=== PATIENT | female | born 1950 | race Caucasian/White ===

== ENCOUNTER 2018-04-04 10:32 | Day surgery (SDC) | payer OTHER, SELFPAY ==
[~2018-04-04] VITALS: Ht 160 cm; Wt 88.9 kg
[~2018-04-04 10:32] MED LIST: CALCAVITDA PO; ESTR2 PO; GLUCHON PO; HYDCHL25 PO; LISI5 PO; MEDR5 PO; MULTIVITAMIN; POTCHL10ER PO; VITAMIN D; [UNRECOGNIZED DRUG - REMARK]
== END 2018-04-04 22:45 | disposition home or self-care (01) ==
LOC: ORSCMMR 10:32 → ORD 11:30 → ORSCMMR 22:45
PROVIDERS: Internal Medicine Gastroenterology
PROC: 0DBE8ZX Excision of Large Intestine, Via Natural or Artificial Opening Endoscopic, Diagnostic (ICD-10-PCS; principal; 2018-04-04 11:30)
DX: R19.7 Diarrhea, unspecified (principal); I10 Essential (primary) hypertension; Z79.899 Other long term (current) drug therapy
CPT/HCPCS: J7120

== ENCOUNTER 2023-09-11 08:48 | Day surgery (SDC) | payer OTHER ==
[~2023-09-11] VITALS: Ht 160 cm; Wt 85.1 kg
[~2023-09-11 08:48] MED LIST changes: +Balanced Salt Epinephrine Irrigation Solution 500 mL IR SCH; +Lidocaine HCl/Pf 1% 5 ML VIAL XX SCH; +Moxifloxacin HCL 0.5 MG/0.1 ML 0.4MLSYR LEFTEYE SCH; +NS 500 ML IV ONE; +PHENYLEPHRINE\\TROPICAMIDE\\TETRACAINE OPHTHALMIC DILATING SOLN LEFTEYE PRN; +Povidone-Iodine 450 DROP/30 ML Solution LEFTEYE SCH; +Povidone-Iodine 450 DROP/30 ML Solution ONE
[2023-09-11] MEDS ORDERED: NS 500 ML IV ONE (09:21)
--- NOTE | 2023-09-11 09:21 | NUR ---
09/11/23 0921 Delmis Coleman CALL LIGHT WITHIN REACH. KIMIN IN LEFT EYE AT 0914 AND JANICE IN AT 0916
[2023-09-11] MEDS ORDERED: Midazolam HCl 1MG / ML 2ML Vial ONE (09:40)
[2023-09-11] MEDS ORDERED: FentaNYL Citrate 50 MCG/ML 2 ML Injection ONE (09:40)
[2023-09-11] MEDS ORDERED: Tetracaine HCl 0.5% Opth Soln 15 ml XX ONE (09:55)
[2023-09-11 10:23] VITALS: BP 142/86
--- NOTE | 2023-09-11 10:24 | NUR ---
09/11/23 1024 BARBARA CLEMONS IV REMOVED CATH INTACT [facility]DL FLUIDS DC IN OR
== END 2023-09-11 10:40 | disposition home or self-care (01) ==
LOC: ORSCSDS 08:48
PROVIDERS: Student in an Organized Health Care Education/Training Program
PROC: 08RK3JZ Replacement of Left Lens with Synthetic Substitute, Percutaneous Approach (ICD-10-PCS; principal; 2023-09-11 10:00)
DX: H25.13 Age-related nuclear cataract, bilateral (principal); I10 Essential (primary) hypertension; H35.30 Unspecified macular degeneration; E66.9 Obesity, unspecified; Z68.33 Body mass index [BMI] 33.0-33.9, adult; Z79.899 Other long term (current) drug therapy
CPT/HCPCS: J2250; J3010; J7040; V2632

== ENCOUNTER 2023-09-25 08:41 | Day surgery (SDC) | payer OTHER ==
[~2023-09-25] VITALS: Ht 157.5 cm; Wt 84.2 kg
[~2023-09-25 08:41] MED LIST changes: -ESTR2 PO; +ESTRADIOL0.5 MG PO; -LISI5 PO; +MEDR2.5 PO; -MEDR5 PO; -Moxifloxacin HCL 0.5 MG/0.1 ML 0.4MLSYR LEFTEYE SCH; +Moxifloxacin HCL 0.5 MG/0.1 ML 0.4MLSYR RIGHTEYE SCH; -PHENYLEPHRINE\\TROPICAMIDE\\TETRACAINE OPHTHALMIC DILATING SOLN LEFTEYE PRN; +PHENYLEPHRINE\\TROPICAMIDE\\TETRACAINE OPHTHALMIC DILATING SOLN RIGHTEYE PRN; +PRESERVISION A1 EAC5 PO; -Povidone-Iodine 450 DROP/30 ML Solution LEFTEYE SCH; +Povidone-Iodine 450 DROP/30 ML Solution RIGHTEYE SCH; +Prinivil10 MG PO; +Vitamin D1000 UNI1 PO
[2023-09-25] MEDS ORDERED: Midazolam HCl 1MG / ML 2ML Vial ONE (08:48)
[2023-09-25] MEDS ORDERED: FentaNYL Citrate 50 MCG/ML 2 ML Injection ONE (08:48)
[2023-09-25] MEDS ORDERED: NS 1,000 ML IV ONE (09:13)
[2023-09-25] MEDS ORDERED: Tetracaine HCl 0.5% Opth Soln 15 ml RIGHTEYE ONE (09:42)
[2023-09-25 10:04] VITALS: BP 139/73
== END 2023-09-25 10:19 | disposition home or self-care (01) ==
LOC: ORSCSDS 08:41
PROVIDERS: Student in an Organized Health Care Education/Training Program
PROC: 08RJ3JZ Replacement of Right Lens with Synthetic Substitute, Percutaneous Approach (ICD-10-PCS; principal; 2023-09-25 10:00)
DX: H25.11 Age-related nuclear cataract, right eye (principal); Z96.1 Presence of intraocular lens; I10 Essential (primary) hypertension; H35.30 Unspecified macular degeneration; Z79.899 Other long term (current) drug therapy
CPT/HCPCS: J2250; J3010; J7040; V2632

== ENCOUNTER 2025-04-03 06:21 | Day surgery (SDC) | payer OTHER ==
[~2025-04-03] VITALS: Ht 157.5 cm; Wt 80.4 kg
[~2025-04-03 06:21] MED LIST changes: -Balanced Salt Epinephrine Irrigation Solution 500 mL IR SCH; -Lidocaine HCl/Pf 1% 5 ML VIAL XX SCH; -Moxifloxacin HCL 0.5 MG/0.1 ML 0.4MLSYR RIGHTEYE SCH; -NS 500 ML IV ONE; -PHENYLEPHRINE\\TROPICAMIDE\\TETRACAINE OPHTHALMIC DILATING SOLN RIGHTEYE PRN; -Povidone-Iodine 450 DROP/30 ML Solution ONE; -Povidone-Iodine 450 DROP/30 ML Solution RIGHTEYE SCH
[2025-04-03] MEDS ORDERED: CeFAZolin Sodium 2,000 MG VIAL ONE (06:39)
[2025-04-03] MEDS ORDERED: Metoclopramide HCl 5MG / ML 2ML Vial ONE (07:04)
[2025-04-03] MEDS ORDERED: Ondansetron HCl 2 MG / ML 2ML Vial ONE (07:04)
[2025-04-03] MEDS ORDERED: FentaNYL Citrate 50 MCG/ML 2 ML Injection ONE (07:06)
[2025-04-03] MEDS ORDERED: Midazolam HCl 1MG / ML 2ML Vial ONE (07:07)
[2025-04-03] MEDS ORDERED: Bupivacaine 0.5% HCl 5 MG/ML 30MLVIAL XX ONE ×2 (07:41)
--- NOTE | 2025-04-03 08:54 | NUR ---
04/03/25 0854 Juliet James MAC ANESTHESIA BUT PT BROUGHT TO PACU RECOVERY AREA. VSS, PT DENIES PAIN. DRY COUGH BL LE PITTING EDEMA PT COOPERATING, SLOW TO ANSWER QUESTIONS. DAUGHTER THERESA TO BEDSIDE. MOD SANG DRAINAGE TO MEDIAL TOE, OR NURSE ELLA MADE AWARE.
[2025-04-03 09:21] VITALS: BP 120/61
== END 2025-04-03 08:32 | disposition home or self-care (01) ==
LOC: ORSCSDS 06:21
PROVIDERS: Podiatrist
PROC: 0QBP0Z2 Excision of Left Metatarsal, Sesamoid Bone(s) 1st Toe, Open Approach (ICD-10-PCS; principal; 2025-04-03 07:30)
DX: M20.12 Hallux valgus (acquired), left foot (principal); M79.672 Pain in left foot; M20.41 Other hammer toe(s) (acquired), right foot; I10 Essential (primary) hypertension; K21.9 Gastro-esophageal reflux disease without esophagitis; E66.9 Obesity, unspecified; Z79.899 Other long term (current) drug therapy
CPT/HCPCS: J0690; J2003; J2250; J2405; J2704; J2765; J3010; J7120